=== PATIENT | female | born 1945 | race Caucasian/White ===

== ENCOUNTER 2017-10-19 11:47 | Emergency (ER) | payer MEDICARE, OTHER ==
[~2017-10-19] VITALS: Ht 157.5 cm; Wt 72.0 kg
[~2017-10-19 11:47] MED LIST: CALCIUM PO; CHOL400T55 PO; FLUT250D PO; LISI-167 PO
[2017-10-19 12:35] LABS: BASOPHILS # (AUTO) 0.11 x10^3/uL (0-0.1); BASOPHILS % (AUTO) 1 % (0-1); EOSINOPHILS # (AUTO) 0.11 x10^3/uL (0-0.4); EOSINOPHILS % (AUTO) 1 % (1-7); LYMPHOCYTES # (AUTO) 2.78 x10^3/uL (1-3.4); LYMPHOCYTES % (AUTO) 25 % (22-44); MD NO; MEAN CORPUSCULAR HEMOGLOBIN 29.2 pg (27.0-34.8); MEAN CORPUSCULAR HGB CONC 33.5 g/dL (32.4-35.8); MEAN CORPUSCULAR VOLUME 87.2 fL (80-100); MEAN PLATELET VOLUME 8.1 fL (7.4-10.4); MONOCYTES # (AUTO) 0.41 x10^3/uL (0.2-0.8); MONOCYTES % (AUTO) 4 % (2-9); NEUTROPHILS # (AUTO) 7.93 x10^3/uL (1.8-6.8); NEUTROPHILS % (AUTO) 70 % (42-75); PLATELET COUNT 356 x10^3/uL (130-400); RED BLOOD COUNT 4.99 x10^6/uL (3.82-5.3); RED CELL DISTRIBUTION WIDTH 12.7 % (9.6-15.2)
[2017-10-19] MEDS ORDERED: LIDOCAINE-MPF 1%, 5ML ONE (12:46)
[2017-10-19 12:48] LABS: ALANINE AMINOTRANSFERASE 18 U/L (12-78); ALBUMIN 3.4 g/dL (3.4-5.0); ANION GAP 10 mmol/L (5-15); CALCIUM 8.5 mg/dL (8.5-10.1); CHLORIDE 107 mmol/L (98-107); INTERNATIONAL NORMALIZED RATIO 0.97 (0.93-1.1)
[2017-10-19 12:51] LABS: ALKALINE PHOSPHATASE 87 U/L (45-117); BILIRUBIN,TOTAL 0.4 mg/dL (0.2-1.0); TOTAL PROTEIN 7.4 g/dL (6.4-8.2)
[2017-10-19 14:43] VITALS: BP 118/71
== END 2017-10-19 14:49 | disposition home or self-care (01) ==
LOC: ED 13:46
DX: J90 Pleural effusion, not elsewhere classified (principal); I10 Essential (primary) hypertension; N28.9 Disorder of kidney and ureter, unspecified; Z98.890 Other specified postprocedural states; Z90.12 Acquired absence of left breast and nipple
CPT/HCPCS: 36415; 71045; 80053; 82945; 83615; 83880; 83986; 84157; 85025; 85610; 87070; 87205; 88112; 88305; 88341; 88342; 89051; 93005; 99285; G0461

== ENCOUNTER 2017-10-27 15:36 | Emergency (ER) | payer MEDICARE, OTHER ==
[~2017-10-27] VITALS: Ht 157.5 cm; Wt 70.0 kg
[2017-10-27] MEDS ORDERED: SODIUM CHLORIDE FLUSH 10ML SYR IVF ONE (16:00)
[2017-10-27 16:02] LABS: BASOPHILS # (AUTO) 0.03 x10^3/uL (0-0.1); BASOPHILS % (AUTO) 0 % (0-1); EOSINOPHILS # (AUTO) 0.16 x10^3/uL (0-0.4); EOSINOPHILS % (AUTO) 1 % (1-7); LYMPHOCYTES # (AUTO) 2.75 x10^3/uL (1-3.4); LYMPHOCYTES % (AUTO) 24 % (22-44); MD NO; MEAN CORPUSCULAR HGB CONC 33.5 g/dL (32.4-35.8); MEAN CORPUSCULAR VOLUME 86.7 fL (80-100); MEAN PLATELET VOLUME 7.7 fL (7.4-10.4); MONOCYTES # (AUTO) 0.45 x10^3/uL (0.2-0.8); MONOCYTES % (AUTO) 4 % (2-9); NEUTROPHILS # (AUTO) 8.15 x10^3/uL (1.8-6.8); NEUTROPHILS % (AUTO) 71 % (42-75); PLATELET COUNT 399 x10^3/uL (130-400); RED BLOOD COUNT 5.23 x10^6/uL (3.82-5.3); RED CELL DISTRIBUTION WIDTH 12.9 % (9.6-15.2)
[2017-10-27 16:10] LABS: ALBUMIN 3.4 g/dL (3.4-5.0); ANION GAP 9 mmol/L (5-15); CALCIUM 8.9 mg/dL (8.5-10.1); CHLORIDE 108 mmol/L (98-107)
[2017-10-27 17:16] VITALS: BP 150/93
== END 2017-10-27 17:22 | disposition home or self-care (01) ==
LOC: ED 16:00
DX: J95.811 Postprocedural pneumothorax (principal); J91.0 Malignant pleural effusion; C50.919 Malignant neoplasm of unspecified site of unspecified female breast; I12.9 Hypertensive chronic kidney disease with stage 1 through stage 4 chronic kidney disease, or unspecified chronic kidney disease; N18.3 Chronic kidney disease, stage 3 (moderate); J45.909 Unspecified asthma, uncomplicated; Z90.12 Acquired absence of left breast and nipple; Z90.49 Acquired absence of other specified parts of digestive tract
CPT/HCPCS: 36415; 71046; 80048; 82040; 85025; 93005; 99285

== ENCOUNTER 2017-11-05 10:23 | Inpatient (IN) | payer MEDICARE, OTHER ==
[~2017-11-05] VITALS: Ht 157.5 cm; Wt 72.3 kg
[2017-11-05] MEDS ORDERED: SODIUM CHLORIDE FLUSH 10ML SYR IVF ONE (11:00)
[2017-11-05] MEDS ORDERED: LETR2.5T PO (11:27)
[2017-11-05 12:24] LABS: BASOPHILS # (AUTO) 0.06 x10^3/uL (0-0.1); BASOPHILS % (AUTO) 1 % (0-1); EOSINOPHILS # (AUTO) 0.19 x10^3/uL (0-0.4); EOSINOPHILS % (AUTO) 2 % (1-7); LYMPHOCYTES # (AUTO) 2.41 x10^3/uL (1-3.4); LYMPHOCYTES % (AUTO) 22 % (22-44); MD NO; MEAN CORPUSCULAR HEMOGLOBIN 29.1 pg (27.0-34.8); MEAN CORPUSCULAR HGB CONC 33.8 g/dL (32.4-35.8); MEAN CORPUSCULAR VOLUME 86.1 fL (80-100); MEAN PLATELET VOLUME 7.6 fL (7.4-10.4); MONOCYTES # (AUTO) 0.34 x10^3/uL (0.2-0.8); MONOCYTES % (AUTO) 3 % (2-9); NEUTROPHILS # (AUTO) 8.22 x10^3/uL (1.8-6.8); NEUTROPHILS % (AUTO) 73 % (42-75); PLATELET COUNT 401 x10^3/uL (130-400); RED BLOOD COUNT 4.78 x10^6/uL (3.82-5.3); RED CELL DISTRIBUTION WIDTH 13.1 % (9.6-15.2)
[2017-11-05 12:32] LABS: ALBUMIN 3.2 g/dL (3.4-5.0); ANION GAP 7 mmol/L (5-15); CALCIUM 9.3 mg/dL (8.5-10.1); CHLORIDE 110 mmol/L (98-107); CREATININE 1.04 mg/dL (0.55-1.02)
[2017-11-05] MEDS ORDERED: LIDOCAINE-MPF 1%, 2ML ONE (13:09)
[2017-11-05] MEDS ORDERED: hydrALAzine 20 MG/ML, 1ML IVPush PRN (14:30)
[2017-11-05] MEDS ORDERED: HYDROcodone/APAP 5/325 TABLET PO PRN (14:30)
[2017-11-05] MEDS ORDERED: ACETAMINOPHEN 325 MG TABLET PO PRN (14:30)
[2017-11-05] MEDS ORDERED: DOCUSATE 100 MG CAPSULE PO PRN (14:30)
[2017-11-05] MEDS: HEPARIN 5,000 UNITS/ML, 1ML SQ SCH ×2 (14:30→22:30)
[2017-11-05] MEDS ORDERED: morphine SULFATE 10 MG/ML, 1ML IVPush PRN (14:30)
[2017-11-05] MEDS ORDERED: BISACODYL 10 MG SUPP PR PRN (14:30)
[2017-11-05] MEDS ORDERED: ONDANSETRON 2MG/ML, 2ML IVPush PRN (14:30)
[2017-11-05] MEDS ORDERED: POLYETHYLENE GLYCOL 17 GM PACKET PO PRN (14:30)
[2017-11-05] MEDS ORDERED: SODIUM CHLORIDE 0.9% 1,000 ML IV SCH (14:30)
[2017-11-05] MEDS ORDERED: ALBUTEROL SULFATE 2.5 MG/3 ML NPPB PRN (16:00)
[2017-11-05 16:06] VITALS: BP 155/93
[2017-11-05] MEDS ORDERED: OMNIPAQUE 350 MG/ML, 100ML BOTTLE ONE (17:09)
[2017-11-05 18:48] VITALS: BP 154/98
[2017-11-05] MEDS: FLUTICASONE PROPIONATE PO SCH (21:00)
[2017-11-06 00:30] VITALS: BP 133/87
[2017-11-06 05:26] LABS: BASOPHILS # (AUTO) 0.04 x10^3/uL (0-0.1); BASOPHILS % (AUTO) 0 % (0-1); EOSINOPHILS # (AUTO) 0.32 x10^3/uL (0-0.4); EOSINOPHILS % (AUTO) 3 % (1-7); LYMPHOCYTES # (AUTO) 2.29 x10^3/uL (1-3.4); LYMPHOCYTES % (AUTO) 23 % (22-44); MD NO; MEAN CORPUSCULAR HEMOGLOBIN 29.1 pg (27.0-34.8); MEAN CORPUSCULAR HGB CONC 33.4 g/dL (32.4-35.8); MEAN PLATELET VOLUME 7.8 fL (7.4-10.4); MONOCYTES # (AUTO) 0.43 x10^3/uL (0.2-0.8); MONOCYTES % (AUTO) 4 % (2-9); NEUTROPHILS # (AUTO) 6.79 x10^3/uL (1.8-6.8); NEUTROPHILS % (AUTO) 69 % (42-75); PLATELET COUNT 384 x10^3/uL (130-400); RED BLOOD COUNT 4.57 x10^6/uL (3.82-5.3); RED CELL DISTRIBUTION WIDTH 12.7 % (9.6-15.2)
[2017-11-06 05:33] LABS: ANION GAP 8 mmol/L (5-15); CALCIUM 8.6 mg/dL (8.5-10.1); CHLORIDE 110 mmol/L (98-107)
[2017-11-06 05:36] LABS: CREATININE 0.92 mg/dL (0.55-1.02)
[2017-11-06] MEDS: HEPARIN 5,000 UNITS/ML, 1ML SQ SCH ×3 (06:30→22:27)
[2017-11-06 07:24] VITALS: BP 157/90
[2017-11-06] MEDS: LETROZOLE 2.5 MG TABLET PO SCH (09:00)
[2017-11-06] MEDS: FLUTICASONE PROPIONATE PO SCH ×2 (09:42→20:40)
[2017-11-06] MEDS: CHOLECALCIFEROL 400 UNITS TABLET PO SCH (09:42)
[2017-11-06] MEDS: LISINOPRIL 10 MG TABLET PO SCH (09:48)
[2017-11-06] MEDS: CALCIUM CARBONATE 500 MG TABLET PO SCH (09:48)
[2017-11-06] MEDS ORDERED: GADOBUTROL 7.5 MMOL/7.5 ML PFS ONE (13:37)
[2017-11-06] MEDS ORDERED: FENTANYL PF 100 MCG/2ML ONE (13:50)
[2017-11-06] MEDS ORDERED: MIDAZOLAM 1 MG/ML, 5ML ONE (13:50)
[2017-11-06] MEDS ORDERED: FLUMAZENIL 0.1 MG/1 ML, 5ML ONE (13:50)
[2017-11-06] MEDS ORDERED: NALOXONE 1 MG/ML, 2ML ONE (13:51)
[2017-11-06] MEDS ORDERED: CEFAZOLIN PMX 1GM/50ML 50 ML ONE (14:22)
[2017-11-06 17:30] VITALS: BP 137/85
[2017-11-06] MEDS: CARVEDILOL 6.25 MG TABLET PO SCH (17:36)
[2017-11-06 19:04] VITALS: BP 121/84
[2017-11-07 00:47] VITALS: BP 113/76
[2017-11-07] MEDS: CARVEDILOL 6.25 MG TABLET PO SCH (06:07)
[2017-11-07] MEDS: HEPARIN 5,000 UNITS/ML, 1ML SQ SCH (06:30)
[2017-11-07 07:49] VITALS: BP 100/71
[2017-11-07] MEDS: FLUTICASONE PROPIONATE PO SCH (09:00)
[2017-11-07] MEDS: LETROZOLE 2.5 MG TABLET PO SCH (09:00)
[2017-11-07] MEDS ORDERED: CARV6.2512 PO (10:15)
[2017-11-07] MEDS: CHOLECALCIFEROL 400 UNITS TABLET PO SCH (10:27)
[2017-11-07] MEDS: LISINOPRIL 10 MG TABLET PO SCH (10:27)
[2017-11-07] MEDS: CALCIUM CARBONATE 500 MG TABLET PO SCH (10:27)
== END 2017-11-07 12:10 | disposition home or self-care (01) | DRG 598 ==
LOC: ED 12:58 → EDIP 12:59 → ED 13:17 → 3NW 15:35
PROVIDERS: ADMIT Internal Medicine; ATTEND Internal Medicine
PROC: 0W9B30Z Drainage of Left Pleural Cavity with Drainage Device, Percutaneous Approach (ICD-10-PCS; principal; 2017-11-05)
PROC: 0W9B30Z Drainage of Left Pleural Cavity with Drainage Device, Percutaneous Approach (ICD-10-PCS; 2017-11-06)
DX: C50.919 Malignant neoplasm of unspecified site of unspecified female breast (principal); N17.9 Acute kidney failure, unspecified; J91.0 Malignant pleural effusion; E44.0 Moderate protein-calorie malnutrition; D72.829 Elevated white blood cell count, unspecified; I12.9 Hypertensive chronic kidney disease with stage 1 through stage 4 chronic kidney disease, or unspecified chronic kidney disease; Z68.29 Body mass index [BMI] 29.0-29.9, adult; N18.3 Chronic kidney disease, stage 3 (moderate); Z80.3 Family history of malignant neoplasm of breast; Z87.442 Personal history of urinary calculi; Z90.12 Acquired absence of left breast and nipple; Z92.3 Personal history of irradiation; Z88.2 Allergy status to sulfonamides; Z90.49 Acquired absence of other specified parts of digestive tract
CPT/HCPCS: 32550; 32555; 36415; 70553; 71045; 71275; 76937; 80048; 82040; 83735; 84100; 85025; 86300; 93005; 99156; 99157; 99285; A9585; J0690; J2250; J3010; J3490; Q9967; C1729; J2310; J7030

== ENCOUNTER → 2017-12-21 | Outpatient (CLI) | payer MEDICARE, OTHER ==
[~2017-12-21] MED LIST changes: +CARV6.2512 PO; +LETR2.5T PO; +OMNIPAQUE 350 MG/ML, 75ML BOTTLE ONE
== END | disposition home or self-care (01) ==
LOC: RAD 11:42
PROVIDERS: ATTEND Internal Medicine Hematology & Oncology
DX: J90 Pleural effusion, not elsewhere classified (principal); J98.11 Atelectasis; C50.412 Malignant neoplasm of upper-outer quadrant of left female breast; K80.20 Calculus of gallbladder without cholecystitis without obstruction; G95.89 Other specified diseases of spinal cord; K76.9 Liver disease, unspecified
CPT/HCPCS: 71260; Q9967

== ENCOUNTER 2017-12-28 09:04 | Day surgery (SDC) | payer MEDICARE, OTHER ==
[~2017-12-28] VITALS: Ht 157.5 cm; Wt 67.4 kg
[~2017-12-28 09:04] MED LIST changes: -OMNIPAQUE 350 MG/ML, 75ML BOTTLE ONE
[2017-12-28 10:30] VITALS: BP 139/88
[2017-12-28] MEDS ORDERED: ABEM150T PO (10:33)
[2017-12-28] MEDS ORDERED: SODIUM CHLORIDE 0.9% 1,000 ML IV SCH (10:36)
[2017-12-28] MEDS ORDERED: LIDOCAINE-MPF 2% ,5ML ONE ×2 (11:03→11:19)
[2017-12-28] MEDS ORDERED: FENTANYL PF 100 MCG/2ML ONE (11:04)
[2017-12-28] MEDS ORDERED: MIDAZOLAM 1 MG/ML, 5ML ONE (11:04)
== END 2017-12-28 12:40 ==
LOC: OUT 09:04
PROVIDERS: ATTEND Internal Medicine Hematology & Oncology
DX: Z46.82 Encounter for fitting and adjustment of non-vascular catheter (principal); C50.912 Malignant neoplasm of unspecified site of left female breast; I10 Essential (primary) hypertension; J45.909 Unspecified asthma, uncomplicated
CPT/HCPCS: 32552; 99156; 99157; J2250; J3010; J3490; J7030

== ENCOUNTER → 2018-03-04 | Outpatient (CLI) | payer MEDICARE, OTHER ==
[~2018-03-04] MED LIST changes: +ABEM150T PO
== END | disposition home or self-care (01) ==
LOC: PETCFH 08:35
PROVIDERS: ATTEND Internal Medicine Hematology & Oncology
DX: C50.412 Malignant neoplasm of upper-outer quadrant of left female breast (principal); Z85.3 Personal history of malignant neoplasm of breast
CPT/HCPCS: 78815; A9552

== ENCOUNTER → 2018-06-25 | Outpatient (CLI) | payer MEDICARE, OTHER | END | disposition home or self-care (01) | LOC: PETCFH 07:36 | PROVIDERS: ATTEND Internal Medicine Hematology & Oncology | DX: K80.80 Other cholelithiasis without obstruction (principal); M89.9 Disorder of bone, unspecified; N20.0 Calculus of kidney; Z85.3 Personal history of malignant neoplasm of breast | CPT/HCPCS: 78815; A9552 ==

== ENCOUNTER → 2018-10-28 | Outpatient (CLI) | payer MEDICARE, OTHER | END | disposition home or self-care (01) | LOC: PETCFH 09:34 | PROVIDERS: ATTEND Internal Medicine Hematology & Oncology | DX: C50.412 Malignant neoplasm of upper-outer quadrant of left female breast (principal); K80.80 Other cholelithiasis without obstruction; N20.0 Calculus of kidney | CPT/HCPCS: 78815; A9552 ==

== ENCOUNTER 2019-04-27 09:44 | Outpatient (CLI) | payer MEDICARE, OTHER | END 2019-04-27 23:59 | disposition home or self-care (01) | LOC: PETCFH 09:44 | PROVIDERS: ATTEND Internal Medicine Hematology & Oncology | DX: K80.80 Other cholelithiasis without obstruction (principal); M89.9 Disorder of bone, unspecified; G95.9 Disease of spinal cord, unspecified; N28.89 Other specified disorders of kidney and ureter; Z90.12 Acquired absence of left breast and nipple; Z98.890 Other specified postprocedural states; Z82.49 Family history of ischemic heart disease and other diseases of the circulatory system | CPT/HCPCS: 78815; A9552 ==

== ENCOUNTER → 2019-10-19 | Outpatient (CLI) | payer MEDICARE, OTHER ==
[~2019-10-19] MED LIST changes: -LETR2.5T PO; +LETR2.5T3 PO
== END | disposition home or self-care (01) ==
LOC: PETCFH 08:38
PROVIDERS: ATTEND Internal Medicine Hematology & Oncology
DX: C50.412 Malignant neoplasm of upper-outer quadrant of left female breast (principal); Z85.3 Personal history of malignant neoplasm of breast
CPT/HCPCS: 78815; A9552

== ENCOUNTER 2020-04-04 08:35 | Outpatient (CLI) | payer MEDICARE, OTHER ==
[2020-05-18] MEDS ORDERED: ROSU20TA2 PO (11:22)
[2020-05-18] MEDS ORDERED: OXYC-302 PO (11:22)
== END 2020-04-04 23:59 | disposition home or self-care (01) ==
LOC: PETCFH 08:35
PROVIDERS: ATTEND Internal Medicine Hematology & Oncology
DX: K80.20 Calculus of gallbladder without cholecystitis without obstruction (principal); K86.89 Other specified diseases of pancreas; Z85.3 Personal history of malignant neoplasm of breast
CPT/HCPCS: 78815; A9552

== ENCOUNTER → 2020-07-26 | Outpatient (CLI) | payer MEDICARE, OTHER ==
[~2020-07-26] MED LIST changes: +OXYC1TAB14 PO; +ROSU20TA2 PO
== END | disposition home or self-care (01) ==
LOC: CFH 09:52
PROVIDERS: ATTEND Internal Medicine Hematology & Oncology
DX: C50.412 Malignant neoplasm of upper-outer quadrant of left female breast (principal); Z85.3 Personal history of malignant neoplasm of breast; R94.5 Abnormal results of liver function studies; Z90.49 Acquired absence of other specified parts of digestive tract
CPT/HCPCS: 76705